=== PATIENT | male | born 1950 | race Caucasian/White ===

== ENCOUNTER 2020-07-02 14:17 | Emergency (ER) | payer MEDICARE, SELFPAY ==
[2020-07-02 14:10] VITALS: BP 118/70; PULSE 80; RESP 13; TEMP 36.7; O2SAT 96
--- NOTE | 2020-07-02 14:21 | ECG_ITS ---
Measurements Intervals [place] Rate: 76 P: 50 SD: 195 QRS: 48 QRSD: 96 T: 61 QT: 401 QTc: 454 Interpretive Statements SINUS RHYTHM EARLY PRECORDIAL R/S TRANSITION BASELINE ARTIFACT- I, II, AVR BORDERLINE ECG Electronically Signed On 07-02-2020 14:41:16 CDT by Micah Andrade D.O.
[2020-07-02 14:37] LABS: Basophils Percent Auto 0.8 % (0.2-1.2); Eosinophils Absolute Auto 0.1 K/mm3 (0-0.3); Eosinophils Percent Auto 3.7 % (0-4.4); Hemoglobin 11.9 g/dL (14.0-18.0); Immature Granulocyte Absolute 0.01 K/mm3 (0.00-0.031); Immature Granulocyte Percent A 0.3 % (0-0.5); Lymphocytes Absolute Auto 0.78 K/mm3 (0.9-3.2); Lymphocytes Percent Auto 20.5 % (18.3-44.2); Mean Corpuscular HGB Conc 32.2 g/dl (32-36); Mean Corpuscular Hemoglobin 31.1 pg (26-34); Mean Corpuscular Volume 96.6 fl (80-100); Mean Platelet Volume 10.8 fl (7.4-10.4); Monocytes Absolute Auto 0.4 K/mm3 (0.1-0.6); Monocytes Percent Auto 9.5 % (2.6-8.5); Neutrophils Absolute Auto 2.5 K/mm3 (1.3-6.7); Neutrophils Percent Auto 65.2 % (45.5-73.1); Platelet Count Result 167 k/mm3 (150-375); Red Blood Count 3.83 M/mm3 (4.6-6.20); Red Cell Distribution Width 14.6 % (11.5-14.5); White Blood Count 3.8 K/mm3 (4.5-10.0)
--- NOTE | 2020-07-02 14:44 | ED.AMS ---
HPI - Altered Mental Status General Chief Complaint: Altered Mental Status Stated Complaint: combative psych pt Time Seen by Provider: 07/02/20 14:44 History of Present Illness HPI narrative: 70 yo male w/ h/o dementia and [facility] in by [facility] the [facility] for combative behavior. He was reportedly yelling at and hitting staff. Refusing his medications this morning. He was combative with EMS. He required physical restraints, Haldol and Ativan. He arrived here calm and cooperative. He is oriented x 1-2 at baseline. He does not have any comlaints. Related Data Home Medications Medication Instructions Recorded Confirmed atorvastatin 07/02/20 divalproex PO 07/02/20 donepezil mg 07/02/20 dronabinol 2.5 mg PO BID 07/02/20 folic acid 1 mg PO DAILY 07/02/20 lisinopril 07/02/20 melatonin 5 mg PO HS 07/02/20 memantine mg 07/02/20 metoprolol succinate PO 07/02/20 quetiapine 07/02/20 Allergies Allergy/AdvReac Type Severity Reaction Status Date / Time Sulfa (Sulfonamide Allergy Mild Unknown Verified 07/02/20 14:46 Antibiotics) Review of Systems Review of Systems: ROS unobtainable: Yes unobtainable due to mental status PMFSH Past Medical History Medical History (Updated 07/02/20 @ 18:47 by Otoniel Meng MD) Dementia HTN (hypertension) Social History Social History (Updated 07/02/20 @ 18:47 by Otoniel Meng MD) Living arrangements: [facility] Gender identity (if verbalized by the patient): Male Exam Const: General: no acute distress and alert Nutritional Appearance: thin HENMT: Mouth: Yes dry mucous membranes Eyes: Conjunctivae: conjunctivae normal Pupils: Equal, round and reactive pupils present EOM: EOMs intact bilaterally Resp: Effort & Inspection: normal respiratory effort Auscultation: clear to auscultation bilaterally Cardio: Rate: regular rate Rhythm: regular rhythm GI: GI Palp: Yes Soft to palpation and No Tenderness to palpation present (GI) Skin: General skin exam: normal color Neuro: General: moves all extremities, no focal motor deficits and CN's II-XI intact bilaterally Other: oriented x1-2 Extrem: General: normal to inspection Psych: Appearance: grossly normal Attitude: cooperative Course Vital Signs Vital signs: Vital Signs Temperature 36.7 C 07/02/20 14:10 Pulse Rate 80 07/02/20 14:10 Respiratory Rate 13 07/02/20 14:10 Blood Pressure 118/70 07/02/20 14:10 Pulse Oximetry 96 07/02/20 14:10 Temperature 36.7 C 07/02/20 14:10 Pulse Rate 69 07/02/20 17:13 Respiratory Rate 15 07/02/20 17:13 Blood Pressure 117/61 07/02/20 17:13 Pulse Oximetry 98 07/02/20 17:13 MDM - Altered Mental Status MDM Narrative Medical decision making narrative: Patient calm and cooperative. No indcation for admission at this time. Medical Records Attestation: I reviewed the patient's medical records. Lab Data Attestation: I reviewed the patient's lab results. Result diagrams: 07/02/20 14:32 07/02/20 14:32 Labs: Lab Results 07/02/20 07/02/20 07/02/20 Range/Units 14:32 14:32 14:44 WBC 3.8 L (4.5-10.0) K/mm3 RBC 3.83 L (4.6-6.20) M/mm3 Hgb 11.9 L (14.0-18.0) g/dL Hct 37.0 L (42.0-52.0) % MCV 96.6 (80-100) fl MCH 31.1 (26-34) pg MCHC 32.2 (32-36) g/dl RDW 14.6 H (11.5-14.5) % Plt Count 167 (150-375) k/mm3 MPV 10.8 H (7.4-10.4) fl Immature Gran % (Auto) 0.3 (0-0.5) % Neut % (Auto) 65.2 (45.5-73.1) % Lymph % (Auto) 20.5 (18.3-44.2) % [place] % (Auto) 9.5 H (2.6-8.5) % Eos % (Auto) 3.7 (0-4.4) % Baso % (Auto) 0.8 (0.2-1.2) % Lymph # (Auto) 0.78 L (0.9-3.2) K/mm3 [place] # (Auto) 0.4 (0.1-0.6) K/mm3 Eos # (Auto) 0.1 (0-0.3) K/mm3 Baso # (Auto) 0.0 (0.0-0.1) K/mm3 Abs Immat Gran (auto) 0.01 (0.00-0.031) K/mm3 Absolute Neuts (auto) 2.5 (1.3-6.7) K/mm3 Absolute Nucleated RBC 0.0 (0.
[2020-07-02 14:56] LABS: Albumin Level 4.2 g/dL (3.5-5.1); Alkaline Phosphatase 42 U/L (38-126); Anion Gap 11 mmol/L (8-16); Aspartate Amino Transferase 31 U/L (17-59); Bilirubin,Total 0.5 mg/dL (0.2-1.3); Blood Urea Nitrogen 25 mg/dL (9-20); Calcium 9.4 mg/dL (8.4-10.2); Carbon Dioxide 26 mmol/L (22-30); Chloride 109 mmol/L (98-107); Estimated Glomerular Filt Rate > 60; Glucose 126 mg/dL (75-110); Potassium 3.6 mmol/L (3.4-5.0); Sodium 146 mmol/L (137-145)
[2020-07-02 15:03] LABS: Add Urine Microscopic? YES; Appearance Urine Clear (Clear); Bacteria Urine Trace /hpf; Bilirubin Urine Negative (Negative); Blood Urine Negative (Negative); Color Urine Yellow (Yellow); Glucose Urine UA Negative (Negative); Ketones Urine Negative (Negative); Leukocyte Esterase Ur Negative LEU/UL (Negative); Mucus Urine Rare /lpf; Nitrate Urine Negative (Negative); Protein Urine 1+ mg/dL (Negative); Specific Grav Ur 1.024 (1.001-1.035); Squamous Epithelial Cell Urine Rare /hpf (Few); WBC Urine 0-3 /hpf
[2020-07-02 15:06] LABS: Alanine Aminotransferase 20 U/L (4-50)
[2020-07-02] MEDS: SODIUM CHLORIDE 0.9% IV 1,000 ML 999 ML IV CONT (15:13)
[2020-07-02 15:29] VITALS: BP 98/60; PULSE 73; RESP 13; O2SAT 100
[2020-07-02 16:31] VITALS: BP 132/69; PULSE 65; RESP 16; O2SAT 96
--- NOTE | 2020-07-02 16:34 | PC.NURSE ---
Spoke to Emmy KAUR at [facility] and gave update on pt returning to [place] w/ neg exam.
[2020-07-02 17:13] VITALS: BP 117/61; PULSE 69; RESP 15; O2SAT 98
[2020-07-02 18:58] VITALS: BP 168/74; PULSE 58; RESP 18; O2SAT 99
--- NOTE | 2020-07-02 19:12 | PC.NURSE ---
Per sec, new ETA for EMS is 2100. Report given at this time to Ted RN, pt notified Ted assuming care of pt.
[2020-07-02 20:24] VITALS: BP 137/72; PULSE 62; RESP 18; O2SAT 99
== END 2020-07-02 20:25 ==
PROVIDERS: Emergency Medicine; Emergency Provider Emergency Medicine; PCP Internal Medicine
DX: F03.91 Unspecified dementia, unspecified severity, with behavioral disturbance (principal); I10 Essential (primary) hypertension; R94.31 Abnormal electrocardiogram [ECG] [EKG]
CPT/HCPCS: 36415; 51701; 80053; 81001; 85025; 93005; 96360; 96361; 99284; J7030

== ENCOUNTER 2021-07-03 12:33 | Emergency (ER) | payer MEDICARE, SELFPAY ==
--- NOTE | ~2021-07-03 | CT_ITS ---
EXAMINATION: CT brain wo con INDICATION: Head injury COMPARISON: None TECHNIQUE: Standard unenhanced head CT. The dose-length product (DLP) was 1362.00 mGy-cm. The mA was adjusted according to patient size. Iterative reconstruction technique was employed. FINDINGS: There is no acute intraparenchymal hemorrhage. No evidence of mass lesion. No evidence of a cute infarction. There is moderate periventricular and subcortical hypodensity probably related to sm all vessel ischemic disease. There is moderate prominence of the sulci and ventricles related to cere bral atrophy. Intracranial calcified cerebral atherosclerosis is noted. There are no extra-axial greta ections. There is no mass effect or midline shift. The orbits and soft tissues are unremarkable. Ther e is complete opacification of the left maxillary sinus with sclerosis of the sinus castro, consistent with chronic sinusitis. There is partial opacification of the ethmoidal air cells. IMPRESSION: 1. No acute intracranial abnormality. 2. Age related findings. 3. Sinus disease. Reviewed, dictated and finalized at location F.
--- NOTE | ~2021-07-03 | CT_ITS ---
EXAMINATION: CT cervical spine wo con DATE: 07/03/2021 13:59 INDICATION: Head injury TECHNIQUE: Computed tomography (CT) of the cervical spine was performed without intravenous contrast. The dose-length product (DLP) was 1362.00 mGy-cm. Automated exposure control and iterative reconstru ction technique were employed. COMPARISON: None FINDINGS: There are 2 mm of anterolisthesis of C3 on C4 and C4 on C5 and 2 mm of retrolisthesis of C6 on C7. The vertebral body heights are maintained. There is severe loss of intervertebral disc space height at C6-7 and mild to moderate loss of disc space height throughout the remainder of the cervica l spine. The odontoid is intact. There is no fracture. 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 IMPRESSION: 1. Moderate to severe cervical spondylosis without acute findings. Reviewed, dictated and finalized at location F.
[2021-07-03 12:34] VITALS: BP 115/65; PULSE 93; RESP 16; TEMP 36.2; O2SAT 95
--- NOTE | 2021-07-03 13:55 | ED.HEATRA ---
HPI - Head Injury General Chief complaint: Head Injury Stated complaint: fall/head injury Time Seen by Provider: 07/03/21 12:46 Source: patient, family and EMS Mode of arrival: EMS Limitations: dementia History of Present Illness HPI Narrative: 70-year-old male presented to the emergency department for evaluation after having a ground-level fall. Patient fell backward and struck his head. senior living stated that that the fall was witnessed, they state the patient got his feet tangled and he fell backward striking his head, the denies any loss of consciousness. Patient does have a laceration on posterior scalp. Patient does have a history of vascular dementia and at his normal neuro baseline per family. MD Complaint: head injury Related Data Home Medications Medication Instructions Recorded Confirmed atorvastatin 07/02/20 divalproex PO 07/02/20 donepezil mg 07/02/20 dronabinol 2.5 mg PO BID 07/02/20 folic acid 1 mg PO DAILY 07/02/20 lisinopril 07/02/20 melatonin 5 mg PO HS 07/02/20 memantine mg 07/02/20 metoprolol succinate PO 07/02/20 quetiapine 07/02/20 Allergies Allergy/AdvReac Type Severity Reaction Status Date / Time Sulfa (Sulfonamide Allergy Mild Unknown Verified 07/03/21 12:44 Antibiotics) Review of Systems Review of Systems: All systems reviewed & are unremarkable except as noted in HPI and below ROS unobtainable: Yes unobtainable due to mental status PMFSH Past Medical History Medical History (Updated 07/03/21 @ 14:45 by Alex Vasquez MD) Dementia HTN (hypertension) Social History Social History (Updated 07/02/20 @ 18:47 by Otoniel Meng MD) Gender identity (if verbalized by the patient): Male Exam Narrative: APPEARANCE: Well appearing, no pain, no distress HEAD: normocephalic, posterior scalp laceration. EYES: PERRLA/EOMI, conjunctivae clear. NOSE: Normal no drainage NECK: Supple. No adenopathy, no masses. RESPIRATORY: Airway patent, respirations nonlabored. Clear to auscultation bilaterally, no rales, rhonchi, wheezing. CARDIOVASCULAR: Regular rate and rhythm without murmurs rubs or gallops. ABDOMINAL: Soft, nontender, nondistended, normal bowel sounds MUSCULOSKELETAL: Moves all extremities. Strength/ROM intact, No edema, No calf tenderness. NEURO: Alert. Cranial nerves II through XII intact. Grossly intact SKIN: Warm, dry. Normal Color Course Course Emergency Course: Head CT was negative for acute finding. Scalp laceration was repaired as described above. Vital Signs Vital signs: Vital Signs Temperature 97.2 F L 07/03/21 12:34 Pulse Rate 93 07/03/21 12:34 Respiratory Rate 16 07/03/21 12:34 Blood Pressure 115/65 07/03/21 12:34 Pulse Oximetry 95 07/03/21 12:34 Temperature 97.2 F L 07/03/21 12:34 Pulse Rate 93 07/03/21 12:34 Respiratory Rate 16 07/03/21 12:34 Blood Pressure 115/65 07/03/21 12:34 Pulse Oximetry 95 07/03/21 12:34 Procedures Laceration Laceration 1: Time: 14:44 Site: scalp Side (If applicable): right Description: irregular Depth: simple, single layer Local Anesthetic: lidocaine 1% and with bicarb Amount of anesthesia used (mL): 3 ====== Skin Level ====== Skin layer closed with: shahid Number of sutures: 2 ====== Subcutaneous Layer ====== ====== Muscle Layer ====== ====== Tendon Layer ====== MDM - Head Injury Imaging Data Radiologist's impression: Impressions Head CT 07/03/21 14:04 IMPRESSION: 1. No acute intracranial abnormality. 2. Age related findings. 3. Sinus disease. Cervical Spine CT 07/03/21 14:10 IMPRESSION: 1. Moderate to severe cervical spondylosis without acute findings. Discharge Plan Discharge Clinical Impression: Closed head injury Qualifiers: Encounter type: initial encounter Qualified Code(s): S09.90XA - Unspecified injury of head, initial encounter Lac
--- NOTE | 2021-07-03 14:09 | PC.NURSE ---
return from ct. pt resting in darkened room for comfort
[2021-07-03] MEDS: TETANUS,DIPHTHERIA,AC PERTUSSIS ADULT (0.5 ML) BOOSTRIX IM (14:54)
== END 2021-07-03 15:45 | disposition home or self-care (01) ==
PROVIDERS: Emergency Provider Emergency Medicine; PCP Internal Medicine
DX: S01.01XA Laceration without foreign body of scalp, initial encounter (principal); Z23 Encounter for immunization; F01.50 Vascular dementia, unspecified severity, without behavioral disturbance, psychotic disturbance, mood disturbance, and anxiety; I10 Essential (primary) hypertension; W01.0XXA Fall on same level from slipping, tripping and stumbling without subsequent striking against object, initial encounter
CPT/HCPCS: 12001; 70450; 72125; 90471; 90715; 99284